=== PATIENT | male | born 1995 | race Caucasian/White ===

== ENCOUNTER 2019-01-10 19:13 | Emergency (ER) | payer SELFPAY ==
[~2019-01-10] VITALS: Ht 172.7 cm; Wt 104.5 kg
[2019-01-10 19:17] VITALS: Ht 172.7 cm; Wt 104.5 kg
[2019-01-10] MEDS ORDERED: PROMETH-CODEIN 65 ML PO (19:46)
[2019-01-10] MEDS ORDERED: OMNICEF300 MG PO (19:46)
[2019-01-10] MEDS ORDERED: ALBUTEROL SULF8.5 GM INH (19:46)
[2019-01-10 20:20] VITALS: BP 140/81
== END 2019-01-10 20:20 | disposition home or self-care (01) ==
LOC: D.ER 19:13
DX: H66.90 Otitis media, unspecified, unspecified ear (principal); J20.9 Acute bronchitis, unspecified